=== PATIENT | male | born 1970 | race Caucasian/White ===

== ENCOUNTER 2019-08-17 23:10 | Emergency (ER) | payer OTHER ==
[~2019-08-17] VITALS: Ht 182.9 cm; Wt 106.0 kg
[2019-08-17 23:15] VITALS: BP 143/97
[2019-08-17 23:44] LABS: BASOPHILS % (AUTO) 1.2 % (0-1); EOSINOPHILS # (AUTO) 0.1 X10'3 (0-0.9); EOSINOPHILS % (AUTO) 1.4 % (0-6); HEMATOCRIT 40.5 % (42.0-52.0); HEMOGLOBIN 13.6 g/dl (14.0-17.9); LYMPHOCYTES # (AUTO) 0.9 X10'3 (1.1-4.8); MEAN CORPUSCULAR HGB CONC 33.6 g/dL (33.0-36.5); MEAN CORPUSCULAR VOLUME 86.5 FL (78-98); MEAN PLATELET VOLUME 7.9 FL (7.4-10.4); MONOCYTES # (AUTO) 0.4 X10'3 (0-0.9); MONOCYTES % (AUTO) 12.2 % (2-12); NEUTROPHILS # (AUTO) 2.2 X10'3 (1.8-7.7); NEUTROPHILS % (AUTO) 61.2 % (42-75); PLATELET COUNT 104 X10'3 (140-440); RED BLOOD COUNT 4.68 X10'6 (4.70-6.10); RED CELL DISTRIBUTION WIDTH 16.6 % (11.5-14.5); WHITE BLOOD COUNT 3.7 X10'3 (4.5-11.0)
[2019-08-17 23:56] LABS: ALANINE AMINOTRANSFERASE 202 U/L (12-78); ALBUMIN 3.9 G/DL (3.4-5.0); ALKALINE PHOSPHATASE 97 IU/L (46-116); ANION GAP 15 (8-16); ASPARTATE AMINO TRANSFERASE 223 U/L (10-37); BILIRUBIN,TOTAL 0.8 MG/DL (0.1-1.0); BLOOD UREA NITROGEN 10 MG/DL (7-18); BUN/CREATININE RATIO 10.6 (5.4-32.0); CHLORIDE 102 MMOL/L (99-107); CREATININE 0.94 MG/DL (0.60-1.10); GLUCOSE 156 MG/DL (70-104); SODIUM 143 MMOL/L (135-145); TOTAL CARBON DIOXIDE 26.3 MMOL/L (24-32); TOTAL PROTEIN 7.8 G/DL (6.4-8.2); eGFR 85 ML/MIN
[2019-08-17 23:58] LABS: POTASSIUM 2.8 MMOL/L (3.5-5.1)
--- NOTE | 2019-08-18 00:07 | NUR ---
charge lpn and myself are aware of the troponin and the potassium however he has no phone number listed. I went out into the parking lot and went car to car looking for him. He is no where. I had a person in the lobby state he left with his brother.
--- NOTE | 2019-08-18 00:10 | NUR ---
REGISTRATION WAS ABLE TO LOCATE A NUMBER FOR THE BROTHER. I CONTACTED THE BROTHER WHO STATED THAT THE PATIENT WAS WITH HIM AND HE WOULD BRING THE PATIENT BACK TO BE SEEN.
[2019-08-18] MEDS ORDERED: BUDE10.2 INH (14:14)
[2019-08-18] MEDS ORDERED: TIOT4MIS5 IH (14:14)
[2019-08-19] MEDS ORDERED: CHOL400T32 PO (13:55)
[2019-08-19] MEDS ORDERED: MULT-1085 PO (13:57)
== END 2019-08-18 02:47 | disposition left against medical advice (07) ==
LOC: ER 23:10
DX: R07.9 Chest pain, unspecified (principal); Z53.21 Procedure and treatment not carried out due to patient leaving prior to being seen by health care provider
CPT/HCPCS: 36415; 71045; 80053; 84484; 85025; 93005

== ENCOUNTER 2019-08-18 07:13 | Inpatient (IN) | payer OTHER ==
[~2019-08-18] VITALS: Ht 182.9 cm; Wt 104.5 kg
[2019-08-18] MEDS ORDERED: POTASSIUM BICARB 20meq eff tab 20 MEQ TABLET.EFF PO ONE (07:45)
[2019-08-18] MEDS ORDERED: POTASSIUM BICARB 20meq eff tab 20 MEQ TABLET.EFF PO SCH (07:45)
[2019-08-18] MEDS ORDERED: heparin 25,000 UNIT/250ml bag 250 ML IV SCH (07:46)
[2019-08-18] MEDS ORDERED: aspirin 325mg tablet, delayed-release (Ecotrin) PO ONE (07:50)
[2019-08-18] MEDS ORDERED: heparin 10,000 units/1 ML INJ IV PRN (07:50)
[2019-08-18] MEDS ORDERED: heparin 10,000 units/1 ML INJ IV ONE (07:50)
[2019-08-18 08:10] LABS: BASOPHILS % (AUTO) 1.4 % (0-1); EOSINOPHILS % (AUTO) 0.8 % (0-6); HEMATOCRIT 39.5 % (42.0-52.0); HEMOGLOBIN 13.3 g/dl (14.0-17.9); LYMPHOCYTES # (AUTO) 0.5 X10'3 (1.1-4.8); MEAN CORPUSCULAR HEMOGLOBIN 29.4 PG (27.0-31.0); MEAN CORPUSCULAR HGB CONC 33.7 g/dL (33.0-36.5); MEAN CORPUSCULAR VOLUME 87.3 FL (78-98); MEAN PLATELET VOLUME 8.2 FL (7.4-10.4); MONOCYTES # (AUTO) 0.4 X10'3 (0-0.9); NEUTROPHILS # (AUTO) 2.3 X10'3 (1.8-7.7); NEUTROPHILS % (AUTO) 71.8 % (42-75); PLATELET COUNT 92 X10'3 (140-440); RED BLOOD COUNT 4.52 X10'6 (4.70-6.10); WHITE BLOOD COUNT 3.3 X10'3 (4.5-11.0)
[2019-08-18] MEDS: atorvastatin 20mg tablet PO SCH (08:14)
--- NOTE | 2019-08-18 08:15 | NUR ---
pt c/o lowback pain and chest pain on painscale 09/24. informed dr. sharpe, new order ativan.
[2019-08-18 08:18] LABS: ALANINE AMINOTRANSFERASE 190 U/L (12-78); ALBUMIN 3.6 G/DL (3.4-5.0); ALKALINE PHOSPHATASE 83 IU/L (46-116); ANION GAP 12 (8-16); BILIRUBIN,TOTAL 0.8 MG/DL (0.1-1.0); BLOOD UREA NITROGEN 8 MG/DL (7-18); CALCIUM 8.6 MG/DL (8.5-10.1); CHLORIDE 103 MMOL/L (99-107); GLUCOSE 114 MG/DL (70-104); SODIUM 144 MMOL/L (135-145); TOTAL CARBON DIOXIDE 29.1 MMOL/L (24-32); TOTAL PROTEIN 7.3 G/DL (6.4-8.2); eGFR > 90 ML/MIN
[2019-08-18 08:20] LABS: ASPARTATE AMINO TRANSFERASE 213 U/L (10-37)
[2019-08-18] MEDS ORDERED: LORazepam 2 mg/ml vial IV ONE ×2 (08:20→10:40)
[2019-08-18 08:21] LABS: POTASSIUM 2.8 MMOL/L (3.5-5.1)
[2019-08-18 08:23] LABS: D-DIMER 1.72 MG/L FEU (0-0.50)
[2019-08-18 08:46] LABS: ETHANOL 0.207 GM/DL (0.0-0.010)
--- NOTE | 2019-08-18 09:06 | NUR ---
brother jimmy [phone]
--- NOTE | 2019-08-18 09:08 | NUR ---
spoke with pts brother. informed that pt drinks about a quart of vodka every day.
[2019-08-18] MEDS ORDERED: magnesium 4gm in 100ml NS 100 ML IV PRN (09:10)
[2019-08-18] MEDS ORDERED: HYDROcodone/acetaminophen 5mg/325mg tablet PO PRN (09:10)
[2019-08-18] MEDS ORDERED: mag hydrox/Alum hydrox/simeth 30ml oral suspension PO PRN (09:10)
[2019-08-18] MEDS ORDERED: morphine 2 MG/ML inj. syringe IV PRN (09:10)
[2019-08-18] MEDS ORDERED: thiamine 100mg/ml 2ml inj. IV ONE (09:10)
[2019-08-18] MEDS ORDERED: acetaminophen 325mg tablet PO PRN ×2 (09:10)
[2019-08-18] MEDS ORDERED: docusate sod 100mg capsule PO PRN (09:10)
[2019-08-18] MEDS ORDERED: dextrose 50%-water 50ml dispensing syringe IV PRN (09:10)
[2019-08-18] MEDS ORDERED: potassium CL 10mEq/100ml bag 100 ML IV PRN ×2 (09:10)
[2019-08-18] MEDS ORDERED: magnesium 2GM in 50ml NS 50 ML IV PRN (09:10)
[2019-08-18] MEDS ORDERED: ondansetron/PF 4mg/2ml inj IV PRN (09:10)
[2019-08-18] MEDS ORDERED: metoprolol tartrate 1mg/ml inj IV PRN (09:20)
[2019-08-18] MEDS ORDERED: aminophylline 250mg/10ml inj. IV PRN (09:20)
[2019-08-18] MEDS ORDERED: regadenoson 0.4mg/5ml syringe IV PRN (09:20)
[2019-08-18] MEDS ORDERED: nitroGLYCERIN 0.4mg SUBLingual tab SL PRN (09:20)
[2019-08-18] MEDS ORDERED: potassium Cl 20 mEq SR tablet PO ONE (09:35)
--- NOTE | 2019-08-18 09:51 | NUR ---
Per Dr. Hernandez, Evy scan to be held at this time. Wait till ETOH level is negative and pt not in active withdrawal.
[2019-08-18] MEDS: normal saline 1000ml 1,000 ML IV SCH ×2 (09:54→19:47)
[2019-08-18] MEDS ORDERED: iohexol 350MG/ML 100ml bottle IV ONE (10:00)
[2019-08-18] MEDS ORDERED: chlordiazePOXIDE 25mg capsule PO ONE (10:40)
[2019-08-18 10:55] LABS: HEMOGLOBIN A1C 5.5 % (4.5-6.2)
--- NOTE | 2019-08-18 11:40 | NUR ---
mother liliana called number [phone]
--- NOTE | 2019-08-18 12:52 | NUR ---
connor phone number [phone]
[2019-08-18 12:57] LABS: URINE AMPHETAMINE SCREEN NEGATIVE (Neg); URINE BARBITUATE SCREEN NEGATIVE (Neg); URINE BENZODIAZEPINES SCREEN NEGATIVE (Neg); URINE CANNABINOID SCREEN NEGATIVE (Neg); URINE COCAINE SCREEN NEGATIVE (Neg); URINE METHADONE SCREEN NEGATIVE (Neg); URINE OPIATE SCREEN NEGATIVE (Neg); URINE PHENCYCLIDINE SCREEN NEGATIVE (Neg)
[2019-08-18] MEDS ORDERED: TIOT4MIS5 IH (14:14)
[2019-08-18] MEDS ORDERED: BUDE10.2 INH (14:14)
--- NOTE | 2019-08-18 14:15 | NUR ---
Patient in room PCU 3012. I have received report from Lisa GUSMAN ER Nurse and had the opportunity to ask questions and assume patient care.
[2019-08-18] MEDS: ipratropium 0.5 MG/2.5ML nebule IH SCH ×2 (14:25→20:04)
[2019-08-18 14:55] LABS: PARTIAL THROMBOPLASTIN TIME 37 SECONDS (22-32)
[2019-08-18 15:00] VITALS: BP 145/97
--- NOTE | 2019-08-18 15:10 | NUR ---
Patient arrived to pcu room 3012C. Patient had a 2 RN skin check, MRSA swab tele applied and all IV fluids verified. Patient was orientated to room and equipment. Bed in a low lock position, call light in reach, phone in reach. Will continue to monitor.
[2019-08-18] MEDS: LORazepam 2 mg/ml vial IV PRN ×6 (15:38→23:52)
[2019-08-18] MEDS ORDERED: albuterol 2.5 MG/3 ML nebule NEB PRN (16:35)
[2019-08-18 18:00] VITALS: BP 126/89
--- NOTE | 2019-08-18 18:12 | NUR ---
Problems reprioritized. Patient report given, questions answered & plan of care reviewed with Ursula GUSMAN.
--- NOTE | 2019-08-18 18:38 | NUR ---
Patient in room PCU 3012. I have received report from Brittney Wood and had the opportunity to ask questions and assume patient care.
[2019-08-18] MEDS: pantoprazole 40 MG vial IV SCH (19:48)
[2019-08-18] MEDS: heparin, porcine 5000 units/ml vial SQ SCH (19:59)
[2019-08-18] MEDS: budesonide 0.5mg/2ml UD nebule IH SCH (20:05)
[2019-08-18] MEDS: K and/or MAG REPLACEMENT MC SCH (20:15)
[2019-08-18] MEDS ORDERED: temazepam 15mg capsule PO PRN (21:00)
[2019-08-18] MEDS: potassium Cl 20 mEq SR tablet PO PRN (21:16)
--- NOTE | 2019-08-18 21:24 | NUR ---
Attempted to DART patient, but he is refusing at this time.
[2019-08-18 22:00] VITALS: BP 145/91
[2019-08-19] VITALS (17 sets, daily range): BP systolic 75–166; BP diastolic 39–129
[2019-08-19] MEDS: potassium Cl 20 mEq SR tablet PO PRN ×4 (00:49→16:31)
[2019-08-19] MEDS: LORazepam 2 mg/ml vial IV PRN ×11 (00:51→21:30)
[2019-08-19] MEDS: ipratropium 0.5 MG/2.5ML nebule IH SCH ×3 (03:21→15:57)
[2019-08-19] MEDS: normal saline 1000ml 1,000 ML IV SCH ×2 (04:26→15:50)
--- NOTE | 2019-08-19 06:06 | NUR ---
Problems reprioritized. Patient report given, questions answered & plan of care reviewed with Brittney Wood
[2019-08-19 06:20] LABS: BASOPHILS % (AUTO) 1.1 % (0-1); EOSINOPHILS % (AUTO) 1.3 % (0-6); HEMATOCRIT 35.9 % (42.0-52.0); HEMOGLOBIN 12.3 g/dl (14.0-17.9); LYMPHOCYTES # (AUTO) 0.4 X10'3 (1.1-4.8); MEAN CORPUSCULAR HEMOGLOBIN 30.2 PG (27.0-31.0); MEAN CORPUSCULAR HGB CONC 34.3 g/dL (33.0-36.5); MEAN CORPUSCULAR VOLUME 87.9 FL (78-98); MEAN PLATELET VOLUME 8.7 FL (7.4-10.4); MONOCYTES # (AUTO) 0.4 X10'3 (0-0.9); MONOCYTES % (AUTO) 11.6 % (2-12); NEUTROPHILS # (AUTO) 2.5 X10'3 (1.8-7.7); PLATELET COUNT 72 X10'3 (140-440); RED BLOOD COUNT 4.08 X10'6 (4.70-6.10); WHITE BLOOD COUNT 3.4 X10'3 (4.5-11.0)
[2019-08-19 06:31] LABS: ALANINE AMINOTRANSFERASE 152 U/L (12-78); ALBUMIN 3.3 G/DL (3.4-5.0); ALBUMIN/GLOBULIN RATIO 0.9 (1.1-1.5); ALKALINE PHOSPHATASE 71 IU/L (46-116); ANION GAP 12 (8-16); ASPARTATE AMINO TRANSFERASE 131 U/L (10-37); BILIRUBIN,TOTAL 0.9 MG/DL (0.1-1.0); BLOOD UREA NITROGEN 8 MG/DL (7-18); CALCIUM 8.1 MG/DL (8.5-10.1); CHLORIDE 105 MMOL/L (99-107); GLUCOSE 84 MG/DL (70-104); MAGNESIUM 1.4 MG/DL (1.5-2.4); POTASSIUM 3.3 MMOL/L (3.5-5.1); SODIUM 144 MMOL/L (135-145); TOTAL CARBON DIOXIDE 27.2 MMOL/L (24-32); TOTAL PROTEIN 6.8 G/DL (6.4-8.2); eGFR > 90 ML/MIN
--- NOTE | 2019-08-19 06:32 | NUR ---
Patient in room PCU 3012. I have received report from Ursula GUSMAN and had the opportunity to ask questions and assume patient care.
[2019-08-19] MEDS: pantoprazole 40 MG vial IV SCH ×2 (07:56→19:07)
[2019-08-19] MEDS: magnesium Cl slow-release 64mg tablet PO PRN ×2 (07:57→15:49)
[2019-08-19] MEDS: atorvastatin 20mg tablet PO SCH (07:57)
[2019-08-19] MEDS: K and/or MAG REPLACEMENT MC SCH ×2 (07:58→19:08)
[2019-08-19] MEDS ORDERED: aminophylline 250mg/10ml inj. IV PRN (08:00)
[2019-08-19] MEDS: heparin, porcine 5000 units/ml vial SQ SCH ×2 (08:00→19:09)
[2019-08-19] MEDS ORDERED: regadenoson 0.4mg/5ml syringe IV PRN (08:00)
[2019-08-19] MEDS: budesonide 0.5mg/2ml UD nebule IH SCH (08:56)
--- NOTE | 2019-08-19 10:06 | NUR ---
Paged Dr. Grigsby Re: Michael Parra RM [id number]. May we have another test for troponin to see trends. It was a recommendation from nuc lab. Please advise Thank you Brittney GUSMAN [phone]
--- NOTE | 2019-08-19 10:07 | NUR ---
Dr. Grigsby art bedside with patient. Dr is waiting for luc scan to get results. Then advance diet to clear liquids and then heart healthy. New orders is to do a troponin spot check to see what trends are doing. Will continue to monitor.
--- NOTE | 2019-08-19 10:13 | NUR ---
Spoke to Lizz in nuc med and let them know that Dr. Grigsby ordered trop levels. Called Lab and spoke to Clara and asked to get drawn gaston. Waiting for labs to continue to Evy scan
--- NOTE | 2019-08-19 11:19 | NUR ---
Paged Dr. Grigsby Re: Michael Parra RM 7247L. FYI critical valve troponin 1.33. Thank you Brittney GUSMAN [phone]
--- NOTE | 2019-08-19 11:40 | NUR ---
Patients Troponin levels were retrieved at a critical level 1.33. Dr. Grigsby aware. [facility] med called and spoke with rancho per Lizz and was advised to retrieve a trop one time level at 0700 on August 20, 2019 and then decided on doing the luc scan and/or further instructions. Patient should be NPO at midnight tonight. Will call Dr. Grigsby per diet orders. Will continue to monitor.
--- NOTE | 2019-08-19 12:16 | NUR ---
Paged Dr. Grigsby Re: Michael Parra RM 7361W. Pt evy scan postponed til 7-5. May pt start eating and what diet? Please advise Thank you Brittney GUSMAN [phone] Addendum: 08/19/19 at 1222 by Brittney Esqueda RN Dr. Grigsby responded to page. New order advance to clear and then full liquids til NPO at midnight tonight. is aware of postpone of Evy til 7-5. Social consult ordered. Will continue to monitor.
[2019-08-19] MEDS ORDERED: CHOL400T32 PO (13:55)
[2019-08-19] MEDS ORDERED: MULT-1085 PO (13:57)
--- NOTE | 2019-08-19 14:00 | NUR ---
Patient has had multiple interventions during this shift. Several times when rounding on patient, patient is seen fidgety and getting up. Patients gait is unstable and at times is confused. Multiple times we have to reorient patient to surrounding and safety measures.
--- NOTE | 2019-08-19 16:08 | NUR ---
Paged Dr. Gagnon Re: Michael Parra RM 2003G. Pt is having high blood pressure 165/110, HR 101. No PRNs prescribed to lower. Please advise, Thank you Brittney GUSMAN [phone] Addendum: 08/19/19 at 1620 by Brittney Esqueda RN Dr. gagnon responded to page regarding blood pressure. No new orders at this time. is aware of high trends for blood pressure and heart, with a manual pressure 165/110 hr 105. Continue to monitor and use Ativan to help with ETOH withdrawls. Will continue to monitor.
--- NOTE | 2019-08-19 18:00 | NUR ---
Patient in room PCU 3012. I have received report from Brittney Wood RN and had the opportunity to ask questions and assume patient care.
--- NOTE | 2019-08-19 18:26 | NUR ---
Problems reprioritized. Patient report given, questions answered & plan of care reviewed with Elvia GUSMAN.
[2019-08-19] MEDS ORDERED: atenolol 25mg tablet PO SCH (20:00)
--- NOTE | 2019-08-19 20:33 | NUR ---
Patient left AMA Patient became extremely anxious and wanting to leave at 1945. I talked to the patient about why he is here and why he should stay. Ativan was given to help with his anxiety and tremors. I advised the patient to call his and to talk to her about his options of leaving safely but he declined; I then told him that I would call his once he has officially left and he said "that's fine". A private room was offered but patient was still wanting to leave. Patient stated that "I'll see the doctor in the morning"... "I'll just come back to the ER in the morning"... "I don't care, I don't want to stay here, I'll deal with the consequences". After asking about what his plan after getting out the hospital, the patient stated that "I'll go to [place]" "I know a good place down the street [referring to drinking and eating establishment]". Patient still decided to leave AM, I called his Nae to update on what had happened and she said "I'm going to try and get down there and find him and bring him back." was notified and made aware.
[2019-08-20] MEDS ORDERED: lisinopril 10 MG tablet PO SCH (08:00)
[2019-08-20] MEDS ORDERED: LORazepam 1 MG tablet PO PRN (09:10)
[2019-08-20] MEDS ORDERED: LORazepam 2 mg/ml vial IV PRN (09:10)
[2019-08-22] MEDS ORDERED: LORazepam 2 mg/ml vial IV PRN (09:10)
[2019-08-22] MEDS ORDERED: LORazepam 1 MG tablet PO PRN (09:10)
== END 2019-08-19 20:40 | disposition left against medical advice (07) | DRG 282 ==
LOC: ER 07:14 → ED HOLD 09:10 → UNDOADMIN 09:16 → PCU 3S 15:05 → ED HOLD 15:05
PROVIDERS: ADMIT Internal Medicine; ATTEND Internal Medicine
PROC: B32T1ZZ Computerized Tomography (CT Scan) of Left Pulmonary Artery using Low Osmolar Contrast (ICD-10-PCS; principal; 2019-08-18)
PROC: B3201ZZ Computerized Tomography (CT Scan) of Thoracic Aorta using Low Osmolar Contrast (ICD-10-PCS; 2019-08-18)
PROC: B32S1ZZ Computerized Tomography (CT Scan) of Right Pulmonary Artery using Low Osmolar Contrast (ICD-10-PCS; 2019-08-18)
DX: I21.4 Non-ST elevation (NSTEMI) myocardial infarction (principal); D69.59 Other secondary thrombocytopenia; E87.6 Hypokalemia; Z53.29 Procedure and treatment not carried out because of patient's decision for other reasons; F10.10 Alcohol abuse, uncomplicated; M54.5 Low back pain; J44.9 Chronic obstructive pulmonary disease, unspecified; Z87.891 Personal history of nicotine dependence
CPT/HCPCS: 36415; 71045; 71275; 80053; 80305; 80320; 83036; 83735; 84132; 84484; 85025; 85379; 85610; 85730; 87081; 93005; 93306; 94640; 94760; 97116; 97162; 99285; C9113; G0378; J1644; J2060; J2270; J3411; J7030; J7626; Q9967

== ENCOUNTER 2019-08-20 13:05 | Inpatient (IN) | payer OTHER ==
[~2019-08-20] VITALS: Ht 182.9 cm; Wt 106.0 kg
[~2019-08-20 13:05] MED LIST: BUDE10.2 INH; CHOL400T32 PO; MULT-1085 PO; TIOT4MIS5 IH
[2019-08-20] MEDS ORDERED: chlordiazePOXIDE 25mg capsule PO ONE (14:40)
[2019-08-20 15:05] LABS: BASOPHILS # (AUTO) 0.1 X10'3 (0-0.2); BASOPHILS % (AUTO) 0.9 % (0-1); EOSINOPHILS % (AUTO) 0.2 % (0-6); HEMATOCRIT 44.5 % (42.0-52.0); HEMOGLOBIN 14.4 g/dl (14.0-17.9); LYMPHOCYTES # (AUTO) 0.5 X10'3 (1.1-4.8); LYMPHOCYTES % (AUTO) 6.7 % (21-51); MEAN CORPUSCULAR HEMOGLOBIN 29.7 PG (27.0-31.0); MEAN CORPUSCULAR HGB CONC 32.4 g/dL (33.0-36.5); MEAN CORPUSCULAR VOLUME 91.7 FL (78-98); MEAN PLATELET VOLUME 9.1 FL (7.4-10.4); MONOCYTES # (AUTO) 0.9 X10'3 (0-0.9); NEUTROPHILS # (AUTO) 6.1 X10'3 (1.8-7.7); NEUTROPHILS % (AUTO) 80.2 % (42-75); PLATELET COUNT 99 X10'3 (140-440); RED BLOOD COUNT 4.85 X10'6 (4.70-6.10); RED CELL DISTRIBUTION WIDTH 16.9 % (11.5-14.5); WHITE BLOOD COUNT 7.6 X10'3 (4.5-11.0)
[2019-08-20 15:14] LABS: ALANINE AMINOTRANSFERASE 186 U/L (12-78); ALBUMIN 4.1 G/DL (3.4-5.0); ALKALINE PHOSPHATASE 93 IU/L (46-116); ANION GAP 28 (8-16); ASPARTATE AMINO TRANSFERASE 234 U/L (10-37); BILIRUBIN,TOTAL 1.4 MG/DL (0.1-1.0); BLOOD UREA NITROGEN 23 MG/DL (7-18); BUN/CREATININE RATIO 16.7 (5.4-32.0); CALCIUM 8.8 MG/DL (8.5-10.1); CHLORIDE 102 MMOL/L (99-107); CREATININE 1.38 MG/DL (0.60-1.10); GLUCOSE 62 MG/DL (70-104); POTASSIUM 3.5 MMOL/L (3.5-5.1); SODIUM 146 MMOL/L (135-145); TOTAL CARBON DIOXIDE 16.4 MMOL/L (24-32); TOTAL PROTEIN 8.2 G/DL (6.4-8.2); eGFR 54 ML/MIN
[2019-08-20 15:19] LABS: ETHANOL < 0.010 GM/DL (0.0-0.010); MAGNESIUM 1.5 MG/DL (1.5-2.4)
[2019-08-20 15:26] LABS: URINE AMPHETAMINE SCREEN NEGATIVE (Neg); URINE BARBITUATE SCREEN NEGATIVE (Neg); URINE BENZODIAZEPINES SCREEN POSITIVE (Neg); URINE CANNABINOID SCREEN NEGATIVE (Neg); URINE COCAINE SCREEN NEGATIVE (Neg); URINE METHADONE SCREEN NEGATIVE (Neg); URINE OPIATE SCREEN POSITIVE (Neg); URINE PHENCYCLIDINE SCREEN NEGATIVE (Neg)
[2019-08-20 15:49] LABS: CLARITY,URINE CLEAR (Clear); COLOR,URINE YELLOW (Yellow); GLUCOSE, URINE NEGATIVE (Neg); KETONES,URINE >=80 mg/dl (Neg); LEUKOCYTE ESTERASE ,URINE NEGATIVE (Neg); NITRITES, URINE NEGATIVE (Neg); OCCULT BLOOD,URINE MODERATE (Neg); PH,URINE 5.5 (4.8-8.0); PROTEIN,URINE 100 mg/dl (Neg)
[2019-08-20 15:53] LABS: UA COLLECTION TYPE CLN CATCH MIDSTREAM
[2019-08-20 15:55] LABS: BACTERIA,URINE NONE SEEN /HPF (Neg); MUCUS STRANDS FEW /LPF (Neg); RBC,URINE 0-2 /HPF (0-2); SQUAMOUS EPITHELIAL CELL,UR FEW /LPF (FEW); WBC,URINE 0-4 /HPF (0-4)
[2019-08-20] MEDS ORDERED: mag hydrox/Alum hydrox/simeth 30ml oral suspension PO PRN (16:25)
[2019-08-20] MEDS ORDERED: thiamine 100mg/ml 2ml inj. IV ONE (16:25)
[2019-08-20] MEDS ORDERED: dextrose 50%-water 50ml dispensing syringe IV PRN (16:25)
[2019-08-20] MEDS ORDERED: heparin 10,000 units/1 ML INJ IV ONE (16:25)
[2019-08-20] MEDS ORDERED: magnesium hydroxide 30ml (MOM) UD suspension PO PRN (16:25)
[2019-08-20] MEDS ORDERED: ondansetron/PF 4mg/2ml inj IV PRN (16:25)
[2019-08-20] MEDS ORDERED: acetaminophen 325mg tablet PO PRN (16:25)
[2019-08-20] MEDS ORDERED: aminophylline 250mg/10ml inj. IV PRN (16:40)
[2019-08-20] MEDS ORDERED: regadenoson 0.4mg/5ml syringe IV PRN (16:40)
[2019-08-20] MEDS ORDERED: nitroGLYCERIN 0.4mg SUBLingual tab SL PRN (16:40)
[2019-08-20] MEDS ORDERED: metoprolol tartrate 1mg/ml inj IV PRN (16:40)
[2019-08-20 16:49] LABS: PARTIAL THROMBOPLASTIN TIME 26 SECONDS (22-32)
[2019-08-20] MEDS ORDERED: ipratropium 0.5 MG/2.5ML nebule IH SCH (16:50)
[2019-08-20] MEDS: heparin 25,000 UNIT/250ml bag 250 ML IV SCH (17:20)
[2019-08-20] MEDS: normal saline 1000ml 1,000 ML IV SCH (17:22)
[2019-08-20] MEDS: LORazepam 2 mg/ml vial IV PRN ×5 (17:46→22:52)
[2019-08-20 18:00] VITALS: BP 139/87
--- NOTE | 2019-08-20 19:00 | NUR ---
Patient in room PCU 3024. I have received report from SECOND VP HR ASSESSMENT by telephone and had the opportunity to ask questions and assume patient care.
[2019-08-20] MEDS: morphine 2 MG/ML inj. syringe IV PRN (19:12)
[2019-08-20] MEDS: budesonide 0.5mg/2ml UD nebule IH SCH (20:56)
[2019-08-20] MEDS: ipratropium/albuterol 3ml nebule IH SCH (20:56)
[2019-08-20] MEDS ORDERED: albuterol 2.5 MG/3 ML nebule NEB SCH (21:00)
[2019-08-20 22:00] VITALS: BP 131/83
[2019-08-21] VITALS (14 sets, daily range): BP systolic 92–138; BP diastolic 55–96
[2019-08-21] MEDS: morphine 2 MG/ML inj. syringe IV PRN ×4 (02:09→19:52)
[2019-08-21] MEDS: LORazepam 2 mg/ml vial IV PRN ×9 (02:10→22:04)
[2019-08-21] MEDS: normal saline 1000ml 1,000 ML IV SCH ×3 (02:24→22:25)
[2019-08-21] MEDS: ipratropium/albuterol 3ml nebule IH SCH ×4 (02:46→20:13)
[2019-08-21 03:53] LABS: BASOPHILS % (AUTO) 0.8 % (0-1); EOSINOPHILS # (AUTO) 0.1 X10'3 (0-0.9); EOSINOPHILS % (AUTO) 1.8 % (0-6); HEMATOCRIT 37.3 % (42.0-52.0); HEMOGLOBIN 12.3 g/dl (14.0-17.9); LYMPHOCYTES # (AUTO) 0.7 X10'3 (1.1-4.8); LYMPHOCYTES % (AUTO) 12.5 % (21-51); MEAN CORPUSCULAR HEMOGLOBIN 29.4 PG (27.0-31.0); MEAN CORPUSCULAR HGB CONC 33.1 g/dL (33.0-36.5); MEAN CORPUSCULAR VOLUME 88.8 FL (78-98); MEAN PLATELET VOLUME 8.7 FL (7.4-10.4); MONOCYTES # (AUTO) 0.7 X10'3 (0-0.9); MONOCYTES % (AUTO) 12.4 % (2-12); NEUTROPHILS # (AUTO) 4.2 X10'3 (1.8-7.7); NEUTROPHILS % (AUTO) 72.5 % (42-75); PLATELET COUNT 96 X10'3 (140-440); RED BLOOD COUNT 4.19 X10'6 (4.70-6.10); WHITE BLOOD COUNT 5.8 X10'3 (4.5-11.0)
[2019-08-21 03:54] LABS: ALBUMIN 3.3 G/DL (3.4-5.0); ANION GAP 18 (8-16); CALCIUM 7.9 MG/DL (8.5-10.1); CHLORIDE 102 MMOL/L (99-107); CREATININE 1.05 MG/DL (0.60-1.10); GLUCOSE 76 MG/DL (70-104); POTASSIUM 3.1 MMOL/L (3.5-5.1); SODIUM 138 MMOL/L (135-145); TOTAL CARBON DIOXIDE 18.2 MMOL/L (24-32); eGFR 74 ML/MIN
[2019-08-21 03:56] LABS: BLOOD UREA NITROGEN 18 MG/DL (7-18); BUN/CREATININE RATIO 17.1 (5.4-32.0)
[2019-08-21] MEDS: heparin 10,000 units/1 ML INJ IV PRN ×2 (04:09→11:51)
[2019-08-21] MEDS: heparin 25,000 UNIT/250ml bag 250 ML IV SCH ×3 (04:11→17:41)
--- NOTE | 2019-08-21 05:30 | NUR ---
End NOC NOTE Patient has been cooperative all shift, confused at times and needs to be reminded about needing to stay for the Evy Scan in the AM. Patient was able to sleep some hours after a few hours needing Ativan on the hour and Morphine for his generalized pain. Will continue to monitor.
--- NOTE | 2019-08-21 06:30 | NUR ---
Problems reprioritized. Patient report given, questions answered & plan of care reviewed with Tai GUSMAN.
[2019-08-21] MEDS: folic acid 1mg tablet PO SCH (07:29)
[2019-08-21] MEDS: thiamine 100mg tablet PO SCH (07:29)
[2019-08-21] MEDS: multivitamins, therapeutics tablet PO SCH (07:29)
--- NOTE | 2019-08-21 07:50 | NUR ---
Patient in room PCU 3024. I have received report from Viviana GUSMAN and had the opportunity to ask questions and assume patient care.
[2019-08-21] MEDS: budesonide 0.5mg/2ml UD nebule IH SCH ×2 (08:00→20:13)
[2019-08-21] MEDS ORDERED: folic acid inj. 2 MG, thiamine inj. 100 MG, MVI, adult No.4 with vit. K 10 ML in dextro... IV SCH ×4 (08:00)
[2019-08-21 09:11] LABS: TROPONIN I 0.93 NG/ML (0.0-0.05)
[2019-08-21] MEDS ORDERED: potassium CL 10mEq/100ml bag 100 ML IV PRN ×2 (09:15)
[2019-08-21] MEDS ORDERED: potassium Cl 20 mEq SR tablet PO PRN (09:15)
[2019-08-21] MEDS: potassium Cl 20 mEq SR tablet PO PRN ×3 (11:23→19:52)
--- NOTE | 2019-08-21 17:06 | NUR ---
Page sent to Dr. Cristina: PAGER ID: [phone] MESSAGE: [id number] Michael Parra: Evy result is up, can I feed him? Thanks, Ceci [phone]
--- NOTE | 2019-08-21 17:23 | NUR ---
Page sent to Dr. Cristina: PAGER ID: [phone] MESSAGE: [id number] Michael Parra: Patient is also asking about his inhalers on his home med rec. Please address if you can.
--- NOTE | 2019-08-21 18:13 | NUR ---
Problems reprioritized. Patient report given, questions answered & plan of care reviewed with Viviana GUSMAN.
--- NOTE | 2019-08-21 18:23 | NUR ---
Patient in room PCU 3024. I have received report from Tai GUSMAN and had the opportunity to ask questions and assume patient care.
[2019-08-21] MEDS: K and/or MAG REPLACEMENT MC SCH (20:00)
[2019-08-22] MEDS: LORazepam 2 mg/ml vial IV PRN ×12 (00:13→18:10)
[2019-08-22] MEDS: morphine 2 MG/ML inj. syringe IV PRN ×4 (00:13→14:14)
[2019-08-22 00:59] LABS: BASOPHILS % (AUTO) 0.7 % (0-1); EOSINOPHILS # (AUTO) 0.1 X10'3 (0-0.9); EOSINOPHILS % (AUTO) 1.6 % (0-6); HEMATOCRIT 38.5 % (42.0-52.0); LYMPHOCYTES # (AUTO) 0.9 X10'3 (1.1-4.8); LYMPHOCYTES % (AUTO) 14.3 % (21-51); MEAN CORPUSCULAR HEMOGLOBIN 30.2 PG (27.0-31.0); MEAN CORPUSCULAR HGB CONC 33.8 g/dL (33.0-36.5); MEAN CORPUSCULAR VOLUME 89.2 FL (78-98); MONOCYTES % (AUTO) 15.5 % (2-12); NEUTROPHILS # (AUTO) 4.2 X10'3 (1.8-7.7); NEUTROPHILS % (AUTO) 67.9 % (42-75); PLATELET COUNT 116 X10'3 (140-440); RED BLOOD COUNT 4.32 X10'6 (4.70-6.10); WHITE BLOOD COUNT 6.2 X10'3 (4.5-11.0)
[2019-08-22 01:20] LABS: PLATELET ESTIMATE DECREASED; TOTAL CELLS COUNTED 100
[2019-08-22 01:22] LABS: ALBUMIN 3.6 G/DL (3.4-5.0); ANION GAP 16 (8-16); BLOOD UREA NITROGEN 14 MG/DL (7-18); BUN/CREATININE RATIO 15.2 (5.4-32.0); CALCIUM 8.5 MG/DL (8.5-10.1); CHLORIDE 100 MMOL/L (99-107); CREATININE 0.92 MG/DL (0.60-1.10); GLUCOSE 92 MG/DL (70-104); POTASSIUM 3.1 MMOL/L (3.5-5.1); SODIUM 134 MMOL/L (135-145); TOTAL CARBON DIOXIDE 18.1 MMOL/L (24-32); eGFR 87 ML/MIN
[2019-08-22 02:00] VITALS: BP 131/89
[2019-08-22] MEDS: ipratropium/albuterol 3ml nebule IH SCH ×4 (03:25→20:06)
--- NOTE | 2019-08-22 06:25 | NUR ---
Problems reprioritized. Patient report given, questions answered & plan of care reviewed with Nelda GUSMAN.
--- NOTE | 2019-08-22 06:34 | NUR ---
Patient in room PCU 3024. I have received report from Elvia GUSMAN and had the opportunity to ask questions and assume patient care.
[2019-08-22 07:00] VITALS: BP 143/114
[2019-08-22] MEDS: budesonide 0.5mg/2ml UD nebule IH SCH ×2 (07:57→20:06)
[2019-08-22 08:03] VITALS: BP 119/84
[2019-08-22] MEDS: heparin 25,000 UNIT/250ml bag 250 ML IV SCH (08:03)
[2019-08-22] MEDS: normal saline 1000ml 1,000 ML IV SCH ×2 (08:24→13:57)
[2019-08-22] MEDS: K and/or MAG REPLACEMENT MC SCH ×2 (08:38→19:33)
[2019-08-22] MEDS: multivitamins, therapeutics tablet PO SCH (08:42)
[2019-08-22] MEDS: thiamine 100mg tablet PO SCH (08:42)
[2019-08-22] MEDS: folic acid 1mg tablet PO SCH (08:42)
[2019-08-22] MEDS: aspirin 81mg tablet.DR PO SCH (08:44)
[2019-08-22] MEDS: metoprolol tartrate 25mg tablet PO SCH ×2 (08:44→19:32)
[2019-08-22 09:07] LABS: CHOL/HDL RATIO 2.4 (0.00-4.99); CHOLESTEROL 198 MG/DL (0-200); HDL CHOLESTEROL 84 MG/DL (35-60); LDL CHOLESTEROL 91 MG/DL (50-100); TRIGLYCERIDES 84 MG/DL (20-135)
[2019-08-22 11:00] VITALS: BP 115/76
[2019-08-22] MEDS: potassium Cl 20 mEq SR tablet PO PRN ×2 (12:11→19:30)
--- NOTE | 2019-08-22 16:31 | NUR ---
Pulled 2 mg ativan that was stocked in [facility]nicel for patient's PRN 2 mg order. However, upon entering room and drawing up medication, 2 mg order had been discontinued and only 1 mg order active. Only administered 1 mg per order @ 1626, and waste of additional mg was witnessed by Beata Hylton RN.
[2019-08-22 18:00] VITALS: BP 146/100
--- NOTE | 2019-08-22 18:50 | NUR ---
Problems reprioritized. Patient report given, questions answered & plan of care reviewed with Elvia GUSMAN. Patient stable at transfer of care.
[2019-08-22] MEDS: LORazepam 1 MG tablet PO PRN (19:31)
[2019-08-22 22:00] VITALS: BP 147/95
[2019-08-23 02:00] VITALS: BP 151/95
[2019-08-23] MEDS: ipratropium/albuterol 3ml nebule IH SCH ×2 (02:47→08:24)
[2019-08-23] MEDS: normal saline 1000ml 1,000 ML IV SCH (03:43)
[2019-08-23 05:32] LABS: ALBUMIN 2.9 G/DL (3.4-5.0); ANION GAP 9 (8-16); BLOOD UREA NITROGEN 7 MG/DL (7-18); BUN/CREATININE RATIO 9.9 (5.4-32.0); CALCIUM 8.3 MG/DL (8.5-10.1); CHLORIDE 108 MMOL/L (99-107); CREATININE 0.71 MG/DL (0.60-1.10); GLUCOSE 108 MG/DL (70-104); POTASSIUM 3.1 MMOL/L (3.5-5.1); SODIUM 144 MMOL/L (135-145); TOTAL CARBON DIOXIDE 26.7 MMOL/L (24-32); eGFR > 90 ML/MIN
[2019-08-23 05:36] LABS: BASOPHILS % (AUTO) 0.7 % (0-1); EOSINOPHILS # (AUTO) 0.1 X10'3 (0-0.9); EOSINOPHILS % (AUTO) 2.1 % (0-6); HEMATOCRIT 35.6 % (42.0-52.0); HEMOGLOBIN 12.1 g/dl (14.0-17.9); LYMPHOCYTES # (AUTO) 0.5 X10'3 (1.1-4.8); LYMPHOCYTES % (AUTO) 13.1 % (21-51); MEAN CORPUSCULAR HEMOGLOBIN 29.6 PG (27.0-31.0); MEAN CORPUSCULAR HGB CONC 33.9 g/dL (33.0-36.5); MEAN CORPUSCULAR VOLUME 87.5 FL (78-98); MEAN PLATELET VOLUME 8.8 FL (7.4-10.4); MONOCYTES % (AUTO) 23.1 % (2-12); NEUTROPHILS # (AUTO) 2.5 X10'3 (1.8-7.7); PLATELET COUNT 113 X10'3 (140-440); RED BLOOD COUNT 4.07 X10'6 (4.70-6.10); RED CELL DISTRIBUTION WIDTH 17.2 % (11.5-14.5); WHITE BLOOD COUNT 4.1 X10'3 (4.5-11.0)
--- NOTE | 2019-08-23 06:28 | NUR ---
Problems reprioritized. Patient report given, questions answered & plan of care reviewed with Dominique GUSMAN.
--- NOTE | 2019-08-23 06:30 | NUR ---
Patient in room PCU 3024. I have received report from NASEEM Michelle and had the opportunity to ask questions and assume patient care. Patient asleep in bed, sitter at the bedside, and in no acute distress.
[2019-08-23 07:00] VITALS: BP 135/90
[2019-08-23 07:41] LABS: PLATELET ESTIMATE DECREASED; TOTAL CELLS COUNTED 100
[2019-08-23 07:42] LABS: ANISOCYTOSIS 1+; LARGE PLATELETS FEW
[2019-08-23] MEDS: folic acid 1mg tablet PO SCH (07:50)
[2019-08-23] MEDS: potassium Cl 20 mEq SR tablet PO PRN (07:50)
[2019-08-23] MEDS: multivitamins, therapeutics tablet PO SCH (07:50)
[2019-08-23] MEDS: thiamine 100mg tablet PO SCH (07:50)
[2019-08-23] MEDS: LORazepam 1 MG tablet PO PRN (07:51)
[2019-08-23] MEDS: metoprolol tartrate 25mg tablet PO SCH (07:51)
[2019-08-23] MEDS: aspirin 81mg tablet.DR PO SCH (07:51)
[2019-08-23] MEDS: K and/or MAG REPLACEMENT MC SCH (07:52)
[2019-08-23] MEDS: budesonide 0.5mg/2ml UD nebule IH SCH (08:22)
[2019-08-23 11:00] VITALS: BP 157/101
[2019-08-23] MEDS ORDERED: FOLI0.4T2 PO (12:04)
[2019-08-23] MEDS ORDERED: THIA50TA10 PO (12:04)
[2019-08-23] MEDS ORDERED: METO-395 PO (12:04)
[2019-08-23] MEDS ORDERED: ATOR20TA PO (12:04)
[2019-08-23] MEDS ORDERED: ASPI81TA52 PO (12:04)
--- NOTE | 2019-08-23 14:20 | NUR ---
Patient stable for discharge per MD orders. All discharge instructions reviewed and questions answered appropriately. Went over discharge instructions with the patient's over the phone as well. Belongings collected and sent with the patient. New prescriptions sent electronically to [facility]. Patient's brought in clothes for patient to be discharged in. Patient will make follow up appointment with PCP, and will make an appointment to follow up with a lock tender chief operator outpatient as well. PIV x2 discontinued and cannulas intact. bus driver/monitor discontinued. Patient wheeled down to [place] and left via private vehicle.
[2019-08-24] MEDS ORDERED: LORazepam 2 mg/ml vial IV PRN (16:25)
[2019-08-24] MEDS ORDERED: LORazepam 1 MG tablet PO PRN (16:25)
== END 2019-08-23 14:20 | disposition home or self-care (01) | DRG 280 ==
LOC: ER 13:06 → ED HOLD 16:24 → PCU 3S 18:50
PROVIDERS: ADMIT Family Medicine; ATTEND Family Medicine
PROC: 4A02XM4 Measurement of Cardiac Total Activity, External Approach (ICD-10-PCS; principal; 2019-08-21)
PROC: 3E073KZ Introduction of Other Diagnostic Substance into Coronary Artery, Percutaneous Approach (ICD-10-PCS; 2019-08-21)
DX: I21.4 Non-ST elevation (NSTEMI) myocardial infarction (principal); N17.0 Acute kidney failure with tubular necrosis; F10.239 Alcohol dependence with withdrawal, unspecified; R74.0 Nonspecific elevation of levels of transaminase and lactic acid dehydrogenase [LDH]; E87.6 Hypokalemia; D69.59 Other secondary thrombocytopenia; F10.229 Alcohol dependence with intoxication, unspecified; J44.9 Chronic obstructive pulmonary disease, unspecified; Z79.82 Long term (current) use of aspirin; Z79.899 Other long term (current) drug therapy; Z87.891 Personal history of nicotine dependence
CPT/HCPCS: 36415; 78452; 80048; 80053; 80061; 80305; 80320; 81001; 83735; 84484; 85025; 85610; 85730; 93005; 93017; 94640; 94760; 99285; A9500; G0378; J1644; J2060; J2270; J2785; J3411; J7030; J7626

== ENCOUNTER → 2019-08-31 | Day surgery (SDC) | payer OTHER ==
[2019-08-31] VITALS (8 sets, daily range): BP systolic 99–131; BP diastolic 66–89
[~2019-08-31] VITALS: Ht 182.9 cm; Wt 94.5 kg
[~2019-08-31] MED LIST changes: +ASPI-1265 PO; +ASPI81TA52 PO; +ATOR20TA PO; +ATOR20TA10 PO; +CHOL20004 PO; -CHOL400T32 PO; +FOLI0.4T2 PO; +LIDOcaine 1% (10mg/ml)w/preservative injection 20ml MDV ONE; +LIDOcaine/PRILOcaine 5gm cream TP ONE; +LORazepam 0.5 MG tablet PO PRN; +METO-395 PO; -MULT-1085 PO; +OXAZEpam 15mg capsule PO PRN; +THIA50TA10 PO; +TIOTROPIUM BROMIDE IH SCH; +albuterol 2.5 MG/3 ML nebule NEB SCH; +aspirin 81mg tab.chew PO SCH; +budesonide 0.5mg/2ml UD nebule IH SCH; +diphenhydrAMINE 25mg capsule PO PRN; +diphenhydrAMINE 50 mg/ml inj ONE; +fentaNYL/PF 50MCG/1 ML 2ML syringe ONE; +folic acid 0.4mg tablet PO SCH; +heparin 1,000unit/ml 10ml vial 10 ML ONE; +iohexol 350MG/ML 100ml bottle IV ONE; +ipratropium 0.5 MG/2.5ML nebule IH SCH; +metoprolol succinate 25mg (24-HOUR) SR. Tablet PO SCH; +midazolam 2 mg/2 ml injection ONE; +nitroGLYCERIN 0.4mg SUBLingual tab SL PRN; +nitroGLYCERIN-Tridil 50MG/D5W 250 ML IV ONE; +non-formulary drug (Budesonide/Formoterol Fumarate (Symbicort 160-4.5 Mcg Inhaler) 2 PUFFS INH SCH; +normal saline 1,000 ML IV SCH; +ondansetron/PF 4mg/2ml inj IV PRN; +proCHLORperazine 10 MG/2 ml inj IV PRN; +ticagrelor 90mg tablet ONE; +ticagrelor 90mg tablet PO SCH; +verapamil 2.5 mg/ml inj IV ONE; +vitamin D (cholecalciferol) 1,000 unit tablet PO SCH
[2019-08-31 13:09] LABS: BASOPHILS % (AUTO) 0.3 % (0-1); EOSINOPHILS # (AUTO) 0.1 X10'3 (0-0.9); EOSINOPHILS % (AUTO) 1.4 % (0-6); HEMATOCRIT 39.3 % (42.0-52.0); HEMOGLOBIN 13.3 g/dl (14.0-17.9); LYMPHOCYTES # (AUTO) 1.1 X10'3 (1.1-4.8); LYMPHOCYTES % (AUTO) 14.1 % (21-51); MEAN CORPUSCULAR HEMOGLOBIN 29.8 PG (27.0-31.0); MEAN CORPUSCULAR VOLUME 87.8 FL (78-98); MONOCYTES % (AUTO) 11.9 % (2-12); NEUTROPHILS # (AUTO) 5.9 X10'3 (1.8-7.7); NEUTROPHILS % (AUTO) 72.3 % (42-75); PLATELET COUNT 495 X10'3 (140-440); RED BLOOD COUNT 4.47 X10'6 (4.70-6.10); RED CELL DISTRIBUTION WIDTH 16.2 % (11.5-14.5); WHITE BLOOD COUNT 8.1 X10'3 (4.5-11.0)
[2019-08-31 13:18] LABS: ALBUMIN 3.8 G/DL (3.4-5.0); ANION GAP 7 (8-16); BLOOD UREA NITROGEN 13 MG/DL (7-18); BUN/CREATININE RATIO 14.3 (5.4-32.0); CALCIUM 9.3 MG/DL (8.5-10.1); CHLORIDE 105 MMOL/L (99-107); CREATININE 0.91 MG/DL (0.60-1.10); GLUCOSE 87 MG/DL (70-104); POTASSIUM 3.7 MMOL/L (3.5-5.1); SODIUM 141 MMOL/L (135-145); TOTAL CARBON DIOXIDE 28.9 MMOL/L (24-32); eGFR 88 ML/MIN
--- NOTE | 2019-08-31 15:15 | NUR ---
Problems reprioritized. Patient report given, questions answered & plan of care reviewed with Chaim GUSMAN ON ACCE UNIT. TRANSFERRED UP IN STABLE CONDITION, PREPPED FOR HEART CATH. TIME OF PROCEDURE CHANGED TO 1800.
--- NOTE | 2019-08-31 16:00 | NUR ---
received report from NASEEM Koenig in Short Stay. pt. walked up to unit with nurse. pt. has no complaints of pain. pt. understands what the plan for his procedure is and has been oriented to his room and has his call light. I agree with the charting of NASEEM Koenig.
--- NOTE | 2019-08-31 18:23 | NUR ---
Problems reprioritized. Patient report given, questions answered & plan of care reviewed with NASEEM Mayo.
--- NOTE | 2019-08-31 18:24 | NUR ---
Patient in room . I have received report from Angelic GUSMAN and had the opportunity to ask questions and assume patient care.
--- NOTE | 2019-08-31 22:05 | NUR ---
Pt stable and able to disharge home per MD orders. Pt left hospital with son via W/C in a personal vehicle at 2105.
== END | disposition home or self-care (01) ==
LOC: SSTAY O 12:20
PROVIDERS: ATTEND Internal Medicine Interventional Cardiology
DX: R94.39 Abnormal result of other cardiovascular function study (principal); I25.118 Atherosclerotic heart disease of native coronary artery with other forms of angina pectoris; J45.909 Unspecified asthma, uncomplicated; E78.5 Hyperlipidemia, unspecified; F10.10 Alcohol abuse, uncomplicated; Z87.891 Personal history of nicotine dependence; Z98.890 Other specified postprocedural states; Z98.52 Vasectomy status; Z79.82 Long term (current) use of aspirin; Z79.899 Other long term (current) drug therapy; Z82.49 Family history of ischemic heart disease and other diseases of the circulatory system
CPT/HCPCS: 36415; 80048; 85025; 85610; 93005; 93458; 99152; 99153; C1751; C1769; C1874; C1894; C9600; J1200; J1644; J2001; J2250; J3010; J7030; Q0163; Q9967; A5120; A6258; J3490

== ENCOUNTER 2020-01-24 20:05 | Emergency (ER) | payer OTHER ==
[~2020-01-24] VITALS: Ht 182.9 cm; Wt 102.3 kg
[~2020-01-24 20:05] MED LIST changes: -ASPI81TA52 PO; -ATOR20TA PO; -LIDOcaine 1% (10mg/ml)w/preservative injection 20ml MDV ONE; -LIDOcaine/PRILOcaine 5gm cream TP ONE; -LORazepam 0.5 MG tablet PO PRN; -OXAZEpam 15mg capsule PO PRN; -TIOTROPIUM BROMIDE IH SCH; -albuterol 2.5 MG/3 ML nebule NEB SCH; -aspirin 81mg tab.chew PO SCH; -budesonide 0.5mg/2ml UD nebule IH SCH; -diphenhydrAMINE 25mg capsule PO PRN; -diphenhydrAMINE 50 mg/ml inj ONE; -fentaNYL/PF 50MCG/1 ML 2ML syringe ONE; -folic acid 0.4mg tablet PO SCH; -heparin 1,000unit/ml 10ml vial 10 ML ONE; -iohexol 350MG/ML 100ml bottle IV ONE; -ipratropium 0.5 MG/2.5ML nebule IH SCH; -metoprolol succinate 25mg (24-HOUR) SR. Tablet PO SCH; -midazolam 2 mg/2 ml injection ONE; -nitroGLYCERIN 0.4mg SUBLingual tab SL PRN; -nitroGLYCERIN-Tridil 50MG/D5W 250 ML IV ONE; -non-formulary drug (Budesonide/Formoterol Fumarate (Symbicort 160-4.5 Mcg Inhaler) 2 PUFFS INH SCH; -normal saline 1,000 ML IV SCH; -ondansetron/PF 4mg/2ml inj IV PRN; -proCHLORperazine 10 MG/2 ml inj IV PRN; -ticagrelor 90mg tablet ONE; -ticagrelor 90mg tablet PO SCH; -verapamil 2.5 mg/ml inj IV ONE; -vitamin D (cholecalciferol) 1,000 unit tablet PO SCH
[2020-01-24 20:07] VITALS: BP 165/115
== END 2020-01-24 20:35 | disposition left against medical advice (07) ==
LOC: ER 20:06
DX: R03.0 Elevated blood-pressure reading, without diagnosis of hypertension (principal); Z53.21 Procedure and treatment not carried out due to patient leaving prior to being seen by health care provider

== ENCOUNTER 2020-02-04 11:06 | Inpatient (IN) | payer OTHER ==
[~2020-02-04] VITALS: Ht 182.9 cm; Wt 100.0 kg
[~2020-02-04 11:06] MED LIST changes: +GABA300C PO; +LORA-269 PO; +ONDA8TAB13 PO
[2020-02-04] MEDS ORDERED: TETanus/Pertussis (Acell)/Diphther VAC/PF (Tdap-Adult) 0.5ml syringe IMVAC ONE (11:20)
[2020-02-04] MEDS ORDERED: LIDOcaine 1% W/epiNEPHrine 1:200,000 10ml vial IJ ONE (11:20)
[2020-02-04] MEDS ORDERED: chlordiazePOXIDE 25mg capsule PO ONE ×2 (11:20→14:35)
[2020-02-04 13:31] LABS: ALANINE AMINOTRANSFERASE 168 U/L (12-78); ALBUMIN 3.6 G/DL (3.4-5.0); ALKALINE PHOSPHATASE 101 IU/L (46-116); ANION GAP 18 (8-16); ASPARTATE AMINO TRANSFERASE 158 U/L (10-37); BLOOD UREA NITROGEN 11 MG/DL (7-18); BUN/CREATININE RATIO 14.1 (5.4-32.0); CALCIUM 7.7 MG/DL (8.5-10.1); CHLORIDE 95 MMOL/L (99-107); CREATININE 0.78 MG/DL (0.60-1.10); ETHANOL 0.164 GM/DL (0.0-0.010); GLUCOSE 74 MG/DL (70-104); SODIUM 138 MMOL/L (135-145); TOTAL CARBON DIOXIDE 25.5 MMOL/L (24-32); TOTAL PROTEIN 7.2 G/DL (6.4-8.2); eGFR > 90 ML/MIN
[2020-02-04 13:34] LABS: POTASSIUM 2.7 MMOL/L (3.5-5.1)
[2020-02-04] MEDS ORDERED: potassium Cl 20 mEq SR tablet PO STA (13:42)
[2020-02-04] MEDS ORDERED: magnesium oxide 400mg tablet PO ONE (13:45)
[2020-02-04] MEDS ORDERED: potassium Cl 20mEq in D5-NS 1,000 ML IV SCH (13:45)
[2020-02-04] MEDS ORDERED: phenobarbital inj 260 MG in normal saline 100ml IV soln 98 ML IV SCH (16:25)
[2020-02-04] MEDS ORDERED: phenobarbital inj 260 MG in normal saline 100ml IV soln 98 ML IV ONE (16:29)
[2020-02-04 17:24] LABS: BASOPHILS % (AUTO) 1.2 % (0-1); EOSINOPHILS % (AUTO) 0.3 % (0-6); HEMATOCRIT 41.5 % (42.0-52.0); HEMOGLOBIN 13.8 g/dl (14.0-17.9); LYMPHOCYTES # (AUTO) 0.5 X10'3 (1.1-4.8); LYMPHOCYTES % (AUTO) 11.6 % (21-51); MEAN CORPUSCULAR HEMOGLOBIN 27.6 PG (27.0-31.0); MEAN CORPUSCULAR HGB CONC 33.2 g/dL (33.0-36.5); MEAN CORPUSCULAR VOLUME 83.1 FL (78-98); MEAN PLATELET VOLUME 7.5 FL (7.4-10.4); MONOCYTES # (AUTO) 0.6 X10'3 (0-0.9); NEUTROPHILS # (AUTO) 2.8 X10'3 (1.8-7.7); NEUTROPHILS % (AUTO) 70.9 % (42-75); PLATELET COUNT 102 X10'3 (140-440); RED BLOOD COUNT 4.99 X10'6 (4.70-6.10); WHITE BLOOD COUNT 3.9 X10'3 (4.5-11.0)
[2020-02-04] MEDS ORDERED: ketorolac trometh. 30mg/ml inj. IV ONE (17:30)
--- NOTE | 2020-02-04 17:39 | NUR ---
TC FROM PATIENT'S SON, RAGINI. FOR CONDITION REPORT. STATES THAT HIS DAD WAS HAVING BLACK EMESIS AND BLACK STOOLS FOR THE PAST FEW DAYS. RAGINI INFORMED THAT PATIENT WAS BEING ADMITTED FOR FURTHER EVALUATION.
[2020-02-04 17:46] LABS: CLARITY,URINE CLEAR (Clear); COLOR,URINE AMBER (Yellow); GLUCOSE, URINE NEGATIVE (Neg); KETONES,URINE >=80 mg/dl (Neg); LEUKOCYTE ESTERASE ,URINE NEGATIVE (Neg); NITRITES, URINE NEGATIVE (Neg); OCCULT BLOOD,URINE TRACE-INTACT (Neg); PROTEIN,URINE 100 mg/dl (Neg)
[2020-02-04 17:47] LABS: UA COLLECTION TYPE URINAL
[2020-02-04 17:51] LABS: ANISOCYTOSIS FEW; BURR CELLS 1+; PLATELET ESTIMATE DECREASED; TOTAL CELLS COUNTED 100
[2020-02-04 17:54] LABS: MUCUS STRANDS FEW /LPF (Neg); SQUAMOUS EPITHELIAL CELL,UR FEW /LPF (FEW)
[2020-02-04 17:55] LABS: BACTERIA,URINE 1+ /HPF (Neg); RBC,URINE 0-2 /HPF (0-2); WBC,URINE 0-4 /HPF (0-4)
[2020-02-04 18:01] LABS: URINE AMPHETAMINE SCREEN NEGATIVE (Neg); URINE BARBITUATE SCREEN NEGATIVE (Neg); URINE BENZODIAZEPINES SCREEN NEGATIVE (Neg); URINE CANNABINOID SCREEN NEGATIVE (Neg); URINE COCAINE SCREEN NEGATIVE (Neg); URINE METHADONE SCREEN NEGATIVE (Neg); URINE OPIATE SCREEN NEGATIVE (Neg); URINE PHENCYCLIDINE SCREEN NEGATIVE (Neg)
[2020-02-04 18:35] LABS: MAGNESIUM 1.5 MG/DL (1.5-2.4)
[2020-02-04] MEDS ORDERED: haloperidol lactate 5mg/ml inj IM PRN (19:10)
[2020-02-04] MEDS ORDERED: magnesium 2GM in 50ml NS 50 ML IV PRN (19:10)
[2020-02-04] MEDS ORDERED: dextrose 50%-water 50ml dispensing syringe IV PRN (19:10)
[2020-02-04] MEDS ORDERED: ondansetron/PF 4mg/2ml inj IV PRN (19:10)
[2020-02-04] MEDS ORDERED: HYDROcodone/acetaminophen 5mg/325mg tablet PO PRN (19:10)
[2020-02-04] MEDS ORDERED: thiamine 100mg/ml 2ml inj. IV ONE (19:10)
[2020-02-04] MEDS ORDERED: acetaminophen 325mg tablet PO PRN ×2 (19:10)
[2020-02-04] MEDS ORDERED: morphine 2 MG/ML inj. syringe IV PRN (19:10)
[2020-02-04] MEDS ORDERED: potassium Cl 40MEQ/1/2NS 520ml 520 ML IV PRN ×2 (19:10)
[2020-02-04] MEDS ORDERED: magnesium hydroxide 30ml (MOM) UD suspension PO PRN (19:10)
[2020-02-04] MEDS ORDERED: diphenhydrAMINE 25mg capsule PO PRN (19:10)
[2020-02-04] MEDS ORDERED: potassium Cl 20 mEq SR tablet PO PRN (19:10)
[2020-02-04] MEDS ORDERED: acetaminophen 650mg rectal suppository RC PRN (19:10)
[2020-02-04] MEDS ORDERED: magnesium 4gm in 100ml NS 100 ML IV PRN (19:10)
[2020-02-04] MEDS ORDERED: bisacodyl 10mg suppository rectal RC PRN (19:10)
[2020-02-04] MEDS ORDERED: mag hydrox/Alum hydrox/simeth 30ml oral suspension PO PRN (19:10)
[2020-02-04] MEDS: K and/or MAG REPLACEMENT MC SCH (20:00)
[2020-02-04] MEDS: dextrose 5%-normal saline 1,000 ML IV SCH (20:24)
[2020-02-04] MEDS: heparin, porcine 5000 units/ml vial SQ SCH (20:31)
[2020-02-04] MEDS: morphine 2 MG/ML inj. syringe IV PRN (20:37)
--- NOTE | 2020-02-05 01:45 | NUR ---
placed on hospital bed patient complained of 7/ pain generalized reports everywhere.
[2020-02-05] MEDS: morphine 2 MG/ML inj. syringe IV PRN ×3 (01:47→16:29)
[2020-02-05] MEDS: dextrose 5%-normal saline 1,000 ML IV SCH ×3 (05:25→16:17)
--- NOTE | 2020-02-05 06:51 | NUR ---
Report received from ED RN. Had opportunity to ask questions concerning Pt care and plan of care. Awaiting arrival of Pt to room 3016B
[2020-02-05 07:00] VITALS: BP 130/100
--- NOTE | 2020-02-05 07:14 | NUR ---
Pt arrived to room 3018B. Pt alert and oriented and vitals WNL. Will continue to monitor Pt.
[2020-02-05] MEDS: thiamine 100mg tablet PO SCH (07:42)
[2020-02-05] MEDS: folic acid 1mg tablet PO SCH (07:43)
[2020-02-05] MEDS: multivitamins, therapeutics tablet PO SCH (07:43)
[2020-02-05] MEDS: heparin, porcine 5000 units/ml vial SQ SCH ×2 (07:44→19:58)
[2020-02-05 08:00] LABS: BASOPHILS % (AUTO) 0.9 % (0-1); EOSINOPHILS # (AUTO) 0.1 X10'3 (0-0.9); EOSINOPHILS % (AUTO) 1.5 % (0-6); HEMATOCRIT 40.3 % (42.0-52.0); HEMOGLOBIN 13.6 g/dl (14.0-17.9); LYMPHOCYTES # (AUTO) 0.5 X10'3 (1.1-4.8); LYMPHOCYTES % (AUTO) 16.1 % (21-51); MEAN CORPUSCULAR HEMOGLOBIN 28.1 PG (27.0-31.0); MEAN CORPUSCULAR HGB CONC 33.8 g/dL (33.0-36.5); MEAN PLATELET VOLUME 7.6 FL (7.4-10.4); MONOCYTES # (AUTO) 0.5 X10'3 (0-0.9); MONOCYTES % (AUTO) 15.7 % (2-12); NEUTROPHILS # (AUTO) 2.2 X10'3 (1.8-7.7); NEUTROPHILS % (AUTO) 65.8 % (42-75); PLATELET COUNT 87 X10'3 (140-440); RED BLOOD COUNT 4.86 X10'6 (4.70-6.10); RED CELL DISTRIBUTION WIDTH 14.9 % (11.5-14.5); WHITE BLOOD COUNT 3.4 X10'3 (4.5-11.0)
[2020-02-05] MEDS: K and/or MAG REPLACEMENT MC SCH ×2 (08:00→20:00)
[2020-02-05 08:21] LABS: ALANINE AMINOTRANSFERASE 140 U/L (12-78); ALBUMIN 3.3 G/DL (3.4-5.0); ALBUMIN/GLOBULIN RATIO 0.9 (1.1-1.5); ALKALINE PHOSPHATASE 95 IU/L (46-116); AMYLASE 14 U/L (25-115); ANION GAP 13 (8-16); ASPARTATE AMINO TRANSFERASE 104 U/L (10-37); BILIRUBIN,TOTAL 1.1 MG/DL (0.1-1.0); BLOOD UREA NITROGEN 5 MG/DL (7-18); BUN/CREATININE RATIO 7.2 (5.4-32.0); CALCIUM 7.4 MG/DL (8.5-10.1); CHLORIDE 93 MMOL/L (99-107); CHOL/HDL RATIO 1.5 (0.00-4.99); CHOLESTEROL 155 MG/DL (0-200); CREATININE 0.69 MG/DL (0.60-1.10); GLUCOSE 115 MG/DL (70-104); HDL CHOLESTEROL 101 MG/DL (35-60); LDL CHOLESTEROL 39 MG/DL (50-100); MAGNESIUM 1.2 MG/DL (1.5-2.4); PHOSPHORUS 1.6 MG/DL (2.3-4.5); SODIUM 133 MMOL/L (135-145); TOTAL PROTEIN 7.1 G/DL (6.4-8.2); TRIGLYCERIDES 67 MG/DL (20-135); eGFR > 90 ML/MIN
[2020-02-05] MEDS: magnesium Cl slow-release 64mg tablet PO PRN ×2 (09:13→17:32)
[2020-02-05] MEDS: potassium Cl 20 mEq SR tablet PO PRN ×2 (09:14→17:31)
--- NOTE | 2020-02-05 09:42 | NUR ---
Sent page to Dr Stewart PAGER ID: [phone] MESSAGE: [id number] Fidel Rodriguez Just assumed care of pt. B/P is 162/119. Please review med rec. Vickie GUSMAN [phone]
[2020-02-05] MEDS ORDERED: hydrALAZINE 20mg/ml inj. IV PRN (09:55)
[2020-02-05] MEDS ORDERED: hydrALAZINE 20mg/ml inj. IV ONE (09:55)
[2020-02-05 10:30] VITALS: BP 162/119
--- NOTE | 2020-02-05 10:36 | NUR ---
3018B Michael Parra has order for [facility] ultrasound. EMELII
[2020-02-05 11:00] VITALS: BP_SYST 130; BP_SYST 137; BP_DIAS 100; BP_DIAS 101
--- NOTE | 2020-02-05 11:08 | NUR ---
Paged Dr. Stewart PAGER ID: [phone] MESSAGE: [id number] Michael Parra Jr: Phos is 1.6. Do you want replacement? Do you want Accuchecks? Vickie GUSMAN [phone]
[2020-02-05] MEDS ORDERED: potassium phosphate inj 30 MMOL in normal saline 500ml IV soln 500 ML IV ONE (11:15)
[2020-02-05] MEDS ORDERED: LORazepam 2 mg/ml vial IV ONE (11:35)
[2020-02-05] MEDS: metoprolol succinate 25mg (24-HOUR) SR. Tablet PO SCH (12:02)
[2020-02-05] MEDS: ciprofloxacin 0.3% 2.5ml ophthalmic solution LEFTEYE SCH ×3 (12:03→19:53)
--- NOTE | 2020-02-05 13:50 | NUR ---
Patient transferred self to BSC to have a BM, patients pants were still up and BSC lid was not opened, his IV was pulled out. New PIV placed. Educated patient again, bed alarm on again. Spoke with charge to move patient closer to nurses station.
[2020-02-05 15:00] VITALS: BP 118/94
[2020-02-05 18:00] VITALS: BP 131/75
--- NOTE | 2020-02-05 18:27 | NUR ---
Patient in room PCU 3026. I have received report from Lashonda GUSMAN and had the opportunity to ask questions and assume patient care.
--- NOTE | 2020-02-05 18:29 | NUR ---
Problems reprioritized. Patient report given, questions answered & plan of care reviewed with Geni GUSMAN. Pt. resting comfortably, offers no complaints.
--- NOTE | 2020-02-05 18:42 | NUR ---
Orientee documentation: I have reviewed and agree with all interventions, assessments performed and documented by Vickie GUSMAN.
[2020-02-05] MEDS: LORazepam 2 mg/ml vial IV PRN ×2 (19:46→20:51)
--- NOTE | 2020-02-05 20:00 | NUR ---
HELD PAGER ID: [phone] MESSAGE: [id number] Michael Parra, Held heparin 5000 unit/ml. Platelets 87. Aj GUSMAN [phone] (77 character message out of a maximum of 240)
--- NOTE | 2020-02-05 21:31 | NUR ---
promotional table spacer PAGER ID: [phone] MESSAGE: Patient Michael Parra Rm [id number] Patient here for alcohol intoxication is very agitated and was given Ativan and Haldol IM. Can we have an order for soft wrist restraints? Thank you. Geni GUSMAN ext. [phone]
[2020-02-05 22:00] VITALS: BP 123/87
[2020-02-06] MEDS: ciprofloxacin 0.3% 2.5ml ophthalmic solution LEFTEYE SCH ×6 (00:50→19:13)
[2020-02-06] MEDS: dextrose 5%-normal saline 1,000 ML IV SCH ×3 (05:07→19:10)
[2020-02-06] MEDS: LORazepam 2 mg/ml vial IV PRN ×10 (05:51→23:51)
--- NOTE | 2020-02-06 06:11 | NUR ---
Orientee documentation: I have reviewed and agree with all interventions, assessments performed and documented by Aj Saldivar. Orientee Medication Administration: For this medication-pass time frame, all medication were reviewed, dispensed, administered and documented per hospital policy by Aj Saldivar.
--- NOTE | 2020-02-06 06:15 | NUR ---
Patient in room PCU 3023. I have received report from Geni GUSMAN and Aj GUSMAN and had the opportunity to ask questions and assume patient care.
--- NOTE | 2020-02-06 06:24 | NUR ---
Problems reprioritized. Patient report given, questions answered & plan of care reviewed with Lashonda GUSMAN.
[2020-02-06 07:00] VITALS: BP 125/102
[2020-02-06 07:26] LABS: BASOPHILS % (AUTO) 0.8 % (0-1); EOSINOPHILS # (AUTO) 0.1 X10'3 (0-0.9); EOSINOPHILS % (AUTO) 2.1 % (0-6); HEMATOCRIT 42.5 % (42.0-52.0); HEMOGLOBIN 14.2 g/dl (14.0-17.9); LYMPHOCYTES # (AUTO) 0.5 X10'3 (1.1-4.8); LYMPHOCYTES % (AUTO) 13.7 % (21-51); MEAN CORPUSCULAR HEMOGLOBIN 27.8 PG (27.0-31.0); MEAN CORPUSCULAR HGB CONC 33.5 g/dL (33.0-36.5); MEAN CORPUSCULAR VOLUME 82.9 FL (78-98); MONOCYTES # (AUTO) 0.5 X10'3 (0-0.9); MONOCYTES % (AUTO) 13.7 % (2-12); NEUTROPHILS # (AUTO) 2.8 X10'3 (1.8-7.7); NEUTROPHILS % (AUTO) 69.7 % (42-75); PLATELET COUNT 115 X10'3 (140-440); RED BLOOD COUNT 5.13 X10'6 (4.70-6.10); RED CELL DISTRIBUTION WIDTH 15.4 % (11.5-14.5)
[2020-02-06 07:41] LABS: ALANINE AMINOTRANSFERASE 121 U/L (12-78); ALBUMIN 3.4 G/DL (3.4-5.0); ALBUMIN/GLOBULIN RATIO 0.9 (1.1-1.5); ALKALINE PHOSPHATASE 99 IU/L (46-116); AMYLASE 12 U/L (25-115); ANION GAP 10 (8-16); ASPARTATE AMINO TRANSFERASE 71 U/L (10-37); BILIRUBIN,TOTAL 1.1 MG/DL (0.1-1.0); BLOOD UREA NITROGEN 7 MG/DL (7-18); BUN/CREATININE RATIO 10.1 (5.4-32.0); CALCIUM 8.5 MG/DL (8.5-10.1); CHLORIDE 102 MMOL/L (99-107); CREATININE 0.69 MG/DL (0.60-1.10); GLUCOSE 121 MG/DL (70-104); MAGNESIUM 1.6 MG/DL (1.5-2.4); PHOSPHORUS 2.7 MG/DL (2.3-4.5); POTASSIUM 4.1 MMOL/L (3.5-5.1); SODIUM 137 MMOL/L (135-145); TOTAL CARBON DIOXIDE 24.6 MMOL/L (24-32); TOTAL PROTEIN 7.2 G/DL (6.4-8.2); eGFR > 90 ML/MIN
[2020-02-06] MEDS: vitamin D (cholecalciferol) 1,000 unit tablet PO SCH (07:43)
[2020-02-06] MEDS: aspirin 81mg tab.chew PO SCH (07:43)
[2020-02-06] MEDS: metoprolol succinate 25mg (24-HOUR) SR. Tablet PO SCH (07:44)
[2020-02-06] MEDS: atorvastatin 20mg tablet PO SCH (07:44)
[2020-02-06] MEDS: folic acid 1mg tablet PO SCH (07:44)
[2020-02-06] MEDS: multivitamins, therapeutics tablet PO SCH (07:46)
[2020-02-06] MEDS: thiamine 100mg tablet PO SCH (07:59)
[2020-02-06] MEDS: K and/or MAG REPLACEMENT MC SCH ×2 (08:00→20:00)
[2020-02-06] MEDS: heparin, porcine 5000 units/ml vial SQ SCH ×2 (08:00→19:26)
[2020-02-06] MEDS ORDERED: ipratropium 0.5 MG/2.5ML nebule NEB PRN (08:00)
[2020-02-06] MEDS ORDERED: PANT40TA54 PO (10:24)
[2020-02-06] MEDS ORDERED: CIPR2.5D14 LEFTEYE (10:24)
[2020-02-06] MEDS ORDERED: MULT-25 PO (10:24)
[2020-02-06] MEDS ORDERED: METO-395 PO (10:24)
[2020-02-06] MEDS ORDERED: LORA-269 PO (10:24)
[2020-02-06] MEDS ORDERED: MAGN400C PO (10:24)
[2020-02-06 11:00] VITALS: BP 133/96
--- NOTE | 2020-02-06 11:01 | NUR ---
PAGER ID: [phone] MESSAGE: [id number] Delphine Parra - You placed discharge orders. Pt. is going through DT's, confused with sitter at beside. Lashonda GUSMAN [phone]
[2020-02-06] MEDS: morphine 2 MG/ML inj. syringe IV PRN (12:40)
[2020-02-06] MEDS: haloperidol 5mg tablet PO PRN ×2 (14:15→21:17)
[2020-02-06] MEDS: HYDROcodone/acetaminophen 10/325mg tab PO PRN (14:16)
--- NOTE | 2020-02-06 14:38 | NUR ---
Pt with increasing agitation and desire to leave. Intermittently insistent that it is time for him to go. Patient states that his threw his "property in the front yard and it is just laying there." Patient reassured of care plan. Medications to lessen anxiety provided. Patient agrees to stay until tomorrow. Sitter present at all times.
[2020-02-06 14:51] LABS: HBSAG SCREEN Negative (Negative); HEP A AB, IGM Negative (Negative); HEPATITIS C ANTIBODY <0.1 s/co ratio (0.0-0.9)
[2020-02-06 15:00] VITALS: BP 130/95
[2020-02-06 18:00] VITALS: BP 151/98
--- NOTE | 2020-02-06 18:23 | NUR ---
Problems reprioritized. Patient report given, questions answered & plan of care reviewed with Roselyn GUSMAN.
--- NOTE | 2020-02-06 18:33 | NUR ---
Orientee documentation: I have reviewed and agree with all interventions, assessments performed and documented by Vickie GUSMAN.
[2020-02-06] MEDS ORDERED: LORazepam 1 MG tablet PO PRN (19:10)
--- NOTE | 2020-02-06 20:36 | NUR ---
Pt is agitated and wanting to leave AMA. IV Ativan and PO Haldol given.
--- NOTE | 2020-02-06 20:37 | NUR ---
Pt disconnected his IV, refusing IV fluids at this time.
--- NOTE | 2020-02-06 22:00 | NUR ---
Pt refused 2200 vitals.
[2020-02-07] MEDS: dextrose 5%-normal saline 1,000 ML IV SCH ×3 (03:10→20:38)
--- NOTE | 2020-02-07 03:14 | NUR ---
Pt refused 0200 vitals.
[2020-02-07] MEDS: ciprofloxacin 0.3% 2.5ml ophthalmic solution LEFTEYE SCH ×7 (05:23→23:44)
[2020-02-07] MEDS: LORazepam 2 mg/ml vial IV PRN ×7 (05:23→23:43)
--- NOTE | 2020-02-07 06:21 | NUR ---
Problems reprioritized. Patient report given, questions answered & plan of care reviewed with NASEEM Durán.
[2020-02-07 07:04] VITALS: BP 147/99
--- NOTE | 2020-02-07 07:05 | NUR ---
Patient in room PCU 3023. I have received report from NASEEM VERGARA and had the opportunity to ask questions and assume patient care.
[2020-02-07 07:20] LABS: BASOPHILS % (AUTO) 0.9 % (0-1); EOSINOPHILS # (AUTO) 0.1 X10'3 (0-0.9); EOSINOPHILS % (AUTO) 2.1 % (0-6); HEMATOCRIT 42.7 % (42.0-52.0); HEMOGLOBIN 14.4 g/dl (14.0-17.9); LYMPHOCYTES # (AUTO) 0.7 X10'3 (1.1-4.8); MEAN CORPUSCULAR HEMOGLOBIN 28.1 PG (27.0-31.0); MEAN CORPUSCULAR HGB CONC 33.6 g/dL (33.0-36.5); MEAN CORPUSCULAR VOLUME 83.5 FL (78-98); MEAN PLATELET VOLUME 8.3 FL (7.4-10.4); MONOCYTES # (AUTO) 0.4 X10'3 (0-0.9); MONOCYTES % (AUTO) 10.5 % (2-12); NEUTROPHILS # (AUTO) 2.6 X10'3 (1.8-7.7); NEUTROPHILS % (AUTO) 67.5 % (42-75); PLATELET COUNT 142 X10'3 (140-440); RED BLOOD COUNT 5.12 X10'6 (4.70-6.10); RED CELL DISTRIBUTION WIDTH 15.4 % (11.5-14.5); WHITE BLOOD COUNT 3.9 X10'3 (4.5-11.0)
[2020-02-07 07:51] LABS: ALANINE AMINOTRANSFERASE 127 U/L (12-78); ALBUMIN 3.4 G/DL (3.4-5.0); ALBUMIN/GLOBULIN RATIO 0.8 (1.1-1.5); ALKALINE PHOSPHATASE 101 IU/L (46-116); AMYLASE 14 U/L (25-115); ANION GAP 12 (8-16); ASPARTATE AMINO TRANSFERASE 90 U/L (10-37); BILIRUBIN,TOTAL 0.9 MG/DL (0.1-1.0); BLOOD UREA NITROGEN 8 MG/DL (7-18); BUN/CREATININE RATIO 11.1 (5.4-32.0); CALCIUM 9.6 MG/DL (8.5-10.1); CHLORIDE 100 MMOL/L (99-107); CREATININE 0.72 MG/DL (0.60-1.10); GLUCOSE 109 MG/DL (70-104); MAGNESIUM 1.8 MG/DL (1.5-2.4); PHOSPHORUS 3.5 MG/DL (2.3-4.5); SODIUM 139 MMOL/L (135-145); TOTAL CARBON DIOXIDE 26.9 MMOL/L (24-32); TOTAL PROTEIN 7.5 G/DL (6.4-8.2); eGFR > 90 ML/MIN
[2020-02-07 07:57] LABS: POTASSIUM 3.5 MMOL/L (3.5-5.1)
[2020-02-07] MEDS: K and/or MAG REPLACEMENT MC SCH ×2 (08:00→19:31)
[2020-02-07] MEDS: multivitamins, therapeutics tablet PO SCH (08:12)
[2020-02-07] MEDS: aspirin 81mg tab.chew PO SCH (08:12)
[2020-02-07] MEDS: atorvastatin 20mg tablet PO SCH (08:13)
[2020-02-07] MEDS: vitamin D (cholecalciferol) 1,000 unit tablet PO SCH (08:13)
[2020-02-07] MEDS: thiamine 100mg tablet PO SCH (08:13)
[2020-02-07] MEDS: folic acid 1mg tablet PO SCH (08:13)
[2020-02-07] MEDS: metoprolol succinate 25mg (24-HOUR) SR. Tablet PO SCH (08:13)
[2020-02-07] MEDS: heparin, porcine 5000 units/ml vial SQ SCH ×2 (08:14→19:30)
[2020-02-07] MEDS: HYDROcodone/acetaminophen 10/325mg tab PO PRN ×4 (08:21→20:37)
[2020-02-07 11:00] VITALS: BP 131/83
[2020-02-07 15:42] VITALS: BP 131/80
[2020-02-07 18:00] VITALS: BP 131/76
--- NOTE | 2020-02-07 18:30 | NUR ---
Problems reprioritized. Patient report given, questions answered & plan of care reviewed with NASEEM Good.
--- NOTE | 2020-02-07 18:31 | NUR ---
Patient in room PCU 3023. I have received report from Leeanna GUSMAN and had the opportunity to ask questions and assume patient care.
[2020-02-07 22:00] VITALS: BP 121/95
[2020-02-08] MEDS: HYDROcodone/acetaminophen 10/325mg tab PO PRN ×3 (00:38→09:27)
[2020-02-08 02:00] VITALS: BP 132/90
[2020-02-08] MEDS: LORazepam 2 mg/ml vial IV PRN (03:47)
[2020-02-08] MEDS: ciprofloxacin 0.3% 2.5ml ophthalmic solution LEFTEYE SCH ×2 (03:49→07:51)
[2020-02-08] MEDS: dextrose 5%-normal saline 1,000 ML IV SCH ×2 (03:51→11:10)
[2020-02-08 06:30] VITALS: BP 136/106
--- NOTE | 2020-02-08 06:32 | NUR ---
Problems reprioritized. Patient report given, questions answered & plan of care reviewed with Jessica GUSMAN.
[2020-02-08 07:17] LABS: BASOPHILS # (AUTO) 0.1 X10'3 (0-0.2); BASOPHILS % (AUTO) 1.9 % (0-1); EOSINOPHILS # (AUTO) 0.1 X10'3 (0-0.9); HEMATOCRIT 37.1 % (42.0-52.0); HEMOGLOBIN 12.5 g/dl (14.0-17.9); LYMPHOCYTES # (AUTO) 0.7 X10'3 (1.1-4.8); LYMPHOCYTES % (AUTO) 22.8 % (21-51); MEAN CORPUSCULAR HEMOGLOBIN 28.1 PG (27.0-31.0); MEAN CORPUSCULAR HGB CONC 33.6 g/dL (33.0-36.5); MEAN CORPUSCULAR VOLUME 83.5 FL (78-98); MONOCYTES # (AUTO) 0.5 X10'3 (0-0.9); MONOCYTES % (AUTO) 17.7 % (2-12); NEUTROPHILS # (AUTO) 1.6 X10'3 (1.8-7.7); NEUTROPHILS % (AUTO) 55.6 % (42-75); PLATELET COUNT 146 X10'3 (140-440); RED BLOOD COUNT 4.45 X10'6 (4.70-6.10); RED CELL DISTRIBUTION WIDTH 15.2 % (11.5-14.5); WHITE BLOOD COUNT 2.9 X10'3 (4.5-11.0)
[2020-02-08 07:32] LABS: ALANINE AMINOTRANSFERASE 120 U/L (12-78); ALBUMIN/GLOBULIN RATIO 0.9 (1.1-1.5); ALKALINE PHOSPHATASE 86 IU/L (46-116); ANION GAP 9 (8-16); ASPARTATE AMINO TRANSFERASE 80 U/L (10-37); BILIRUBIN,TOTAL 0.6 MG/DL (0.1-1.0); BLOOD UREA NITROGEN 8 MG/DL (7-18); BUN/CREATININE RATIO 12.7 (5.4-32.0); CALCIUM 8.4 MG/DL (8.5-10.1); CHLORIDE 103 MMOL/L (99-107); CREATININE 0.63 MG/DL (0.60-1.10); GLUCOSE 122 MG/DL (70-104); MAGNESIUM 1.5 MG/DL (1.5-2.4); PHOSPHORUS 4.1 MG/DL (2.3-4.5); POTASSIUM 3.3 MMOL/L (3.5-5.1); SODIUM 141 MMOL/L (135-145); TOTAL CARBON DIOXIDE 29.1 MMOL/L (24-32); TOTAL PROTEIN 6.5 G/DL (6.4-8.2); eGFR > 90 ML/MIN
[2020-02-08] MEDS: folic acid 1mg tablet PO SCH (07:50)
[2020-02-08] MEDS: multivitamins, therapeutics tablet PO SCH (07:50)
[2020-02-08] MEDS: atorvastatin 20mg tablet PO SCH (07:51)
[2020-02-08] MEDS: vitamin D (cholecalciferol) 1,000 unit tablet PO SCH (07:51)
[2020-02-08] MEDS: metoprolol succinate 25mg (24-HOUR) SR. Tablet PO SCH (07:51)
[2020-02-08] MEDS: thiamine 100mg tablet PO SCH (07:51)
[2020-02-08] MEDS: aspirin 81mg tab.chew PO SCH (07:51)
[2020-02-08] MEDS: heparin, porcine 5000 units/ml vial SQ SCH (07:52)
[2020-02-08] MEDS: K and/or MAG REPLACEMENT MC SCH (07:54)
[2020-02-08 11:00] VITALS: BP 143/102
[2020-02-08 11:23] LABS: PLATELET ESTIMATE NORMAL; TOTAL CELLS COUNTED 100
[2020-02-08 11:29] LABS: ANISOCYTOSIS FEW; ELLIPTOCYTES FEW
--- NOTE | 2020-02-08 11:37 | NUR ---
Patient stable and appropriate for discharge home with his mother. IV removed, security monitor removed, home medications from pharmacy given back to patient. New prescriptions transmitted to [facility] in [place]. All belongings taken from room. Discharge education and instructions reviewed with patient, all questions answered. Patient is aware of next due doses on all new and continued medications.
[2020-02-08] MEDS ORDERED: LORazepam 1 MG tablet PO PRN (19:10)
[2020-02-08] MEDS ORDERED: LORazepam 2 mg/ml vial IV PRN (19:10)
== END 2020-02-08 11:40 | disposition home or self-care (01) | DRG 641 ==
LOC: ER 11:06 → ED HOLD 19:09 → EDBEDREQ 22:38 → PCU 3S 02-05 07:05
PROVIDERS: ADMIT Family Medicine; ATTEND Family Medicine
PROC: 0HQ1XZZ Repair Face Skin, External Approach (ICD-10-PCS; principal; 2020-02-04)
DX: E87.6 Hypokalemia (principal); F10.230 Alcohol dependence with withdrawal, uncomplicated; E78.5 Hyperlipidemia, unspecified; F10.229 Alcohol dependence with intoxication, unspecified; I10 Essential (primary) hypertension; I16.0 Hypertensive urgency; I25.10 Atherosclerotic heart disease of native coronary artery without angina pectoris; S09.8XXA Other specified injuries of head, initial encounter; J44.9 Chronic obstructive pulmonary disease, unspecified; R29.6 Repeated falls; S01.112A Laceration without foreign body of left eyelid and periocular area, initial encounter; W18.39XA Other fall on same level, initial encounter; Y93.89 Activity, other specified; Y92.89 Other specified places as the place of occurrence of the external cause; Y99.8 Other external cause status; I25.2 Old myocardial infarction; Z91.14 Patient's other noncompliance with medication regimen; Z79.899 Other long term (current) drug therapy; Z87.891 Personal history of nicotine dependence; Z91.19 Patient's noncompliance with other medical treatment and regimen
CPT/HCPCS: 12011; 36415; 70450; 71045; 72125; 76700; 80053; 80061; 80305; 80320; 81001; 82150; 83036; 83735; 84100; 84443; 85007; 85025; 85610; 86705; 86706; 86709; 86803; 87081; 87340; 87535; 90471; 90715; 92508; 92616; 93005; 94760; 97116; 97161; 97530; 99285; G0378; J0360; J1630; J1644; J1885; J2060; J2270; J2405; J2560; J3411; J3480; J7040; J7042

== ENCOUNTER 2020-10-28 10:44 | Outpatient (CLI) | payer MEDICAID ==
[~2020-10-28 10:44] MED LIST changes: +CIPR2.5D14 LEFTEYE; -FOLI0.4T2 PO; +FOLI0.4T6 PO; -GABA300C PO; +MAGN400C PO; +MULT-25 PO; -ONDA8TAB13 PO; +PANT40TA54 PO
== END 2020-10-28 23:59 | disposition home or self-care (01) ==
LOC: RAD 10:44
PROVIDERS: ATTEND Internal Medicine Critical Care Medicine
DX: R91.8 Other nonspecific abnormal finding of lung field (principal)
CPT/HCPCS: 71046